=== PATIENT | male | born 1970 | race African-American/Black ===

== ENCOUNTER 2018-09-25 14:55 | Emergency (ER) | payer MEDICAID, OTHER ==
[~2018-09-25] VITALS: Ht 172.7 cm; Wt 81.0 kg
[2018-09-25] MEDS ORDERED: MAGNESIUM/ALUMINUM HYDROXIDE/SIMETHICONE 30ML UDC PO ONE (22:45)
[2018-09-25] MEDS ORDERED: VISCOUS LIDOCAINE 2% 15 ML UDC PO ONE (22:45)
[2018-09-25] MEDS ORDERED: ASPIRIN 81MG TABLET PO ONE (22:45)
[2018-09-26 02:38] LABS: BASOPHILS % 0.9 % (0.0-2.0); EOSINOPHILS % 0.7 % (0.0-5.0); HEMATOCRIT. 37.2 % (42.0-52.0); HEMOGLOBIN. 12.6 g/dL (14.0-18.0); LYMPHOCYTES % 35.1 % (20.0-50.0); MEAN CORPUSCULAR HEMOGLOBIN 32.8 pg (28.0-32.0); MEAN CORPUSCULAR VOLUME 96.6 fL (80.0-94.0); MEAN PLATELET VOLUME 7.1 fl (7.4-10.4); MONOCYTES % 8.6 % (2.0-8.0); NEUTROPHILS % 54.7 % (40.0-76.0); PLATELET 166 x1000/uL (130-400); RED BLOOD CELL COUNT 3.85 mill/uL (4.7-6.1); RED CELL DISTRIBUTION WIDTH 13.7 % (11.6-14.6)
[2018-09-26 02:46] LABS: CHLORIDE 111 mEq/L (98-107)
[2018-09-26] MEDS ORDERED: KETOROLAC 30MG/ML VIAL IV NR (05:00)
[2018-09-26 05:08] VITALS: BP 120/79
== END 2018-09-26 05:00 | disposition home or self-care (01) ==
LOC: ER 14:55
DX: R07.89 Other chest pain (principal); R94.31 Abnormal electrocardiogram [ECG] [EKG]
CPT/HCPCS: 36415; 71045; 80053; 83880; 84484; 85025; 93005; 99284; J1885